=== PATIENT | male | born 1960 | race Caucasian/White ===

== ENCOUNTER 2021-06-12 10:50 | Outpatient (CLI) | payer OTHER, SELFPAY ==
--- NOTE | 2021-06-16 13:44 | WPDHOLTEREM ---
Holter/Event Monitor Holter/Event Monitor Date of procedure: 06/12/21 Holter/Event Procedure: 24 Hr Holter Monitor Indications: Bradycardia Conclusion: 1. 24 hour holter monitor on 06/12/21. 2. Predominant rhythm is sinus rhythm. HR range 50-100 bpm; average HR 66 bpm. 3. There are 41 premature supraventricular complexes and 2 supraventricular couplets. One episode of atrial tachycardia at 122 bpm lasting 4 beats at 05:11. 4. There are 24 premature ventricular complexes. No ventricular tachycardia. 5. No sinoatrial or atrioventricular blocks. No significant pauses greater than 2 seconds. 6. No symptoms available for correlation.
== END 2021-06-12 10:51 | disposition home or self-care (01) ==
PROVIDERS: PCP Family Medicine; Visit Provider Physician Assistant
DX: R00.1 Bradycardia, unspecified (principal)
CPT/HCPCS: 93225; 93226

== ENCOUNTER 2022-05-21 00:23 | Day surgery (SDC) | payer OTHER, SELFPAY ==
[2022-05-05 13:59] VITALS: BMI 25.7
--- NOTE | 2022-05-20 12:55 | WPDANESEPPF ---
Anes - Initial Pre Proc Eval Procedure: Operation Date: 05/21/22 09:00 Proposed Procedures p Screening Colonoscopy - Epi Justice MD Date/Time: 05/20/22 12:55 Surgeon: Epi Justice MD Pre Op Diagnosis: neoplasm screening Patient Data Age: 61 Gender: M Height: 1.88 m Weight: 90.9 kg Allergies Allergy/AdvReac Type Severity Reaction Status Date / Time Iodinated Contrast Media Allergy Unknown Other Verified 05/21/22 08:07 morphine Allergy Unknown Other Verified 05/21/22 08:07 Home Medications Medication Instructions Recorded Confirmed Type ergocalciferol (vitamin D2) 1,250 1,250 mcg PO WEEKLY #14 caps 05/07/21 05/21/22 Rx mcg (50,000 unit) capsule (Vitamin D2) loratadine 10 mg tablet (Claritin) 10 mg PO DAILY PRN Allergy Symptoms 05/07/21 05/21/22 History cholecalciferol (vitamin D3) 50 50 mcg PO DAILY 03/02/22 05/21/22 History mcg (2,000 unit) capsule mecobalamin (vitamin B12) 1,000 1,000 mcg PO DAILY 03/02/22 05/21/22 History mcg chewable tablet nirmatrelvir 300 mg (150 mg See Rx Instructions PO .COMPLEX 03/04/22 05/21/22 Rx x2)-ritonavir 100 mg tablet,dose #30 tabs pack(EUA) (Paxlovid) sildenafil 50 mg tablet (Viagra) 50 mg PO DAILY PRN Sexual Activity 05/05/22 05/21/22 History Patient hx anesthesia problems: none Family hx anesthesia problems: none Results Review: All pre-operative results and documents have been reviewed as part of the pre-operative evaluation. [facility] Surgical History Surgical History Hx of appendectomy Status post labral repair of shoulder Family History Family History Grandparent Family history of glaucoma Cerebrovascular accident Father Family history of lung cancer Social History Social History Smoking status: Never smoker Alcohol intake: current Drinks per week: 7 Alcohol use details: beer and mixed drinks Living arrangements: with family Tianna Scales Final PreProcedure Day of Procedure 05/20/22 12:55 Patient weight: overweight Heart: regular rate and rhythm Lungs: clear to auscultation Airway: Mallampati scale class II Neurological: alert and oriented Last oral intake: >/= 8 hours ASA classification: II Emergent: no Anesthetic plan: proceed Anesthesia type and monitoring: general GIVS and standard monitoring Results Review: All pre-operative results and documents have been reviewed as part of the pre-operative evaluation. Informed Consent: The patient's anesthetic plan and its attendant risks and benefits were discussed with the patient/family/POA. Questions were solicited and answers provided to the satisfaction of the patient/family/POA.
--- NOTE | 2022-05-21 07:27 | PM.HPGS ---
History of Present Illness History of Present Illness Consent: Risks, benefits, and alternatives have been discussed and questions answered. Patient agrees to proceed with procedure. Chief complaint: neoplasm screening Narrative: Geoff Wing is a 61 year old male Referred for colon cancer screening. Review of Systems Review of Systems: All systems reviewed & are unremarkable except as noted in HPI and below PMFSH Surgical History Surgical History Hx of appendectomy Status post labral repair of shoulder Family History Family History Grandparent Family history of glaucoma Cerebrovascular accident Father Family history of lung cancer Social History Social History Smoking status: Never smoker Alcohol intake: current Drinks per week: 7 Alcohol use details: beer and mixed drinks Living arrangements: with family Meds Home Medications and Allergies Home Medications Medication Instructions Recorded Confirmed Type ergocalciferol (vitamin D2) 1,250 1,250 mcg PO WEEKLY #14 caps 05/07/21 05/05/22 Rx mcg (50,000 unit) capsule (Vitamin D2) loratadine 10 mg tablet (Claritin) 10 mg PO DAILY PRN Allergy Symptoms 05/07/21 05/05/22 History cholecalciferol (vitamin D3) 50 50 mcg PO DAILY 03/02/22 05/05/22 History mcg (2,000 unit) capsule mecobalamin (vitamin B12) 1,000 1,000 mcg PO DAILY 03/02/22 05/05/22 History mcg chewable tablet nirmatrelvir 300 mg (150 mg See Rx Instructions PO .COMPLEX 03/04/22 05/05/22 Rx x2)-ritonavir 100 mg tablet,dose #30 tabs pack(EUA) (Paxlovid) sildenafil 50 mg tablet (Viagra) 50 mg PO DAILY PRN Sexual Activity 05/05/22 05/05/22 History Allergies Allergy/AdvReac Type Severity Reaction Status Date / Time Iodinated Contrast Media Allergy Unknown Other Verified 05/21/22 08:07 morphine Allergy Unknown Other Verified 05/21/22 08:07 Exam Resp: Auscultation: clear to auscultation bilaterally Cardio: Rate: regular rate Rhythm: regular rhythm GI: GI Palp: Yes Soft to palpation and No Tenderness to palpation present (GI) Assessment and Plan Assessment and plan (1) Screening for colon cancer: Code(s): Z12.11 - Encounter for screening for malignant neoplasm of colon Status: Acute Assessment and Plan: Colonoscopy with possible biopsy or polypectomy or cautery or injection of substances.
[2022-05-21 08:09] VITALS: BP 139/89; PULSE 63; RESP 18; TEMP 36.9; O2SAT 100; BMI 25.7
[2022-05-21] MEDS: LACTATED RINGERS 1,000 ML 150 ML IV CONT (08:13)
[2022-05-21 09:13] VITALS: BP 118/73; PULSE 64; RESP 20; O2SAT 96
[2022-05-21 09:23] VITALS: BP 120/68; PULSE 64; RESP 22; O2SAT 98
[2022-05-21 09:33] VITALS: BP 140/90; PULSE 62; RESP 22; O2SAT 100
== END 2022-05-21 09:57 | disposition home or self-care (01) ==
PROVIDERS: PCP Physician Assistant; Visit Provider Internal Medicine Gastroenterology
PROC: 0DJD8ZZ Inspection of Lower Intestinal Tract, Via Natural or Artificial Opening Endoscopic (ICD-10-PCS; CPT 45378; principal; 2022-05-21 09:00)
DX: Z12.11 Encounter for screening for malignant neoplasm of colon (principal)
CPT/HCPCS: 45378; J2001; J2704; J7120

== ENCOUNTER 2024-11-20 08:54 | Outpatient (CLI) | payer OTHER, SELFPAY ==
--- NOTE | 2024-11-20 08:58 | ECHO_ITS ---
Patient Info Name: Geoff Wing Age: 64 years : 1960 Gender: Male Ht: 74 in Wt: 205 lbs BSA: 2.21 m2 HR: 79 bpm BP: 126 / 72 mmHg Heart Rhythm: Sinus Rhythm Technical Quality: Excellent Exam Date: 11/20/2024 9:10 AM Exam Location: Echo Lab Patient Status: Outpatient Admit Date: 11/20/2024 Staff Ordering Physician: Shmuel Jamil APRN Bailiff: Jennifer Green RDCS Attending Provider: Shmuel Jamil APRN Referring Physician: Omero MCGUIRE; Exam Type: CA echo doppler color flow Study Info Indications - Palpitations, unspecified atrial fib Complete two-dimensional, color flow and Doppler transthoracic echocardiogram is performed. Summary 1. Complete two-dimensional, color flow and Doppler transthoracic echocardiogram is performed. 2. Left ventricular chamber dimension is normal. 3. Left ventricular systolic function is normal, estimated at 60-65%. 4. The left ventricular diastolic function is normal. 5. E/e' 7 is not elevated. 6. Left atrial chamber dimension is mildly enlarged. 7. There is mild aortic valve sclerosis. 8. There is mild mitral valve regurgitation. 9. There is trace tricuspid valve regurgitation. 10. No pulmonary hypertension, estimated pulmonary arterial systolic pressure is 34 mmHg. Left Ventricle E/e' 7 is not elevated. Left ventricular chamber dimension is normal. Left ventricular systolic function is normal, estimated at 60-65%. The left ventricular diastolic function is normal. Right Ventricle Right ventricular systolic function is normal and with normal TAPSE 2.9 cm. Right ventricular chamber dimension is normal. Left Atria Left atrial chamber dimension is mildly enlarged. Right Atria Right atrial chamber dimension is normal. Aortic Valve The aortic valve is trileaflet. There is mild aortic valve sclerosis. There is no aortic valve stenosis. There is no aortic valve regurgitation. Pulmonic Valve There is no pulmonic regurgitation. Mitral Valve There is no mitral valve stenosis. There is mild mitral valve regurgitation. Tricuspid Valve There is trace tricuspid valve regurgitation. No pulmonary hypertension, estimated pulmonary arterial systolic pressure is 34 mmHg. Pericardium/Pleural There is no pericardial effusion. Inferior Vena Cava Normal inferior vena cava with >50% collapse upon inspiration consistent with normal right atrial pressure, 5 mmHg. Aorta The aortic root size at the sinus of Valsalva is normal. Left Ventricular Outflow Tract Name Value Normal LVOT 2D LVOT Diameter 2.0 cm LVOT Doppler LVOT Peak Gradient 5 mmHg LVOT Mean Gradient 2 mmHg LVOT VTI 24 cm LVOT VTI/AV VTI Ratio 1.0 LVOT Stroke Volume 77 ml LVOT CO 4.8 l/min LVOT CI 2.2 l/min/m2 Pulmonic Valve Name Value Normal PV Doppler PV Peak Gradient 2 mmHg Mitral Valve Name Value Normal MV Doppler MV Peak Gradient 2 mmHg MV Mean Gradient 1 mmHg MV Decel Rock 272 cm/s2 MV PHT 69 ms MV Area (PHT) 3.2 cm2 4.0-5.0 MV Area (Cont Eq VTI) 3.5 cm2 MV Regurgitation Doppler MR Peak Gradient 120 mmHg MV Diastolic Function MV E Peak Velocity 65 cm/s MV A Peak Velocity 63 cm/s MV E/A 1.0 MV Decel Time 238 ms MV Annular TDI MV E/e' (Septal) 9.8 <=8.0 MV E/e' (Lateral) 6.6 <=8.0 MV E/e' (Average) 8.2 Tricuspid Valve Name Value Normal TV Regurgitation Doppler TR Peak Velocity 269 cm/s TR Peak Gradient 29 mmHg Estimated PAP/RSVP RA Pressure 5 mmHg <=5 PA Systolic Pressure 34 mmHg <36 RV Systolic Pressure 34 mmHg <36 Aortic Valve Name Value Normal AV Doppler AV Peak Velocity 120 cm/s AV Peak Gradient 6 mmHg AV Mean Gradient 3 mmHg AV VTI 25 cm AV Area (Cont Eq VTI) 3.1 cm2 >=3.0 AV Area (Cont Eq Tenzin) 2.9 cm2 AV Regurgitation 2D LVOT Area 3.2 cm2 Ventricles Name Value Normal LV Dimensions 2D/MM IVS Diastolic Thickness (2D) 0.7 cm 0.6-1.0 LVID Diastole (2D) 5.3 cm 4.2-5.8 LVIW Diastolic Thickness (2D) 0.8 cm 0.6-1.0 LVID Systole (2D) 3.8 cm 2.5-4.0 LVOT Diameter 2.0 cm LV Mass (2D Cubed) 148.75 g 88.00-224.00 LV Mass Index (2D Cubed) 67 g/m2 49-115 Relative Wall Thickness (2D) 0.32 LV Fractional Shortening/Ejection Fraction 2D/MM LV Fractional Shortening (2D) 29 % 25-43 LV EF (2D Teicholz) 55 % 52-72 LV Diastolic Volume (4C MOD) 144 ml LV EF (4C MOD) 70 % LV Diastolic Volume (2C MOD) 160 ml LV EF (2C MOD) 65 % LV Diastolic Volume (BP MOD) 155 ml 62-150 LV Diastolic Volume Index (BP MOD) 70 ml/m2 34-74 LV Systolic Volume (BP MOD) 50 ml 21-61 LV Systolic Volume Index (BP MOD) 23 ml/m2 11-31 LV EF (BP MOD) 68 % 52-72 LV Diastolic Length (4C) 8.3 cm LV Systolic Length (4C) 6.8 cm LV Stroke Volume (4C MOD) 100 ml LV CO (BP MOD) 6.8 l/min LV CI (BP MOD) 3.1 l/min/m2 Atria Name Value Normal LA Dimensions LA Volume (4C A-L) 56 ml LA Volume (BP A-L) 57 ml RA Dimensions RA Area (4C) 18.4 cm2 <=18.0 Report Signatures
--- OUTSIDE RECORDS SUMMARY | 2024-11-20 09:34 | XMS_ITS | Referral Summary ---
Author Organization [facility] [employer] Address [address] [address] Care Team Providers Care Structural Steel Ironworker Name Role Phone Jeffery Chacon MD Primary Care Provider [phone] Source Comments [facility],non-owned Affiliates and Associated Physician Practices is amultiple site organization consisting of ambulatory clinics and hospital sitesin [place], [place], [place] and [place]. This disclosure is being madepursuant to the Care Everywhere program and may not contain all information available regarding this patient. Last updated 18.[facility] Allergies Active Allergy Reactions Criticality Noted Date Comments Morphine 01/08/2014 Medications * Be aware that medications may not be up to date on this document. Alwaysverify current medications with the patient. Medication Sig Dispensed Refills Start Date End Date Status IBUPROFEN PO Active loratadine (Claritin) 10 MG tablet Take 1 (one) tablet by mouth as needed for Runny Nose or Allergies Active cyanocobalamin (Vitamin B-12) 1000 MCG tablet Take 1 (one) tablet by mouth once daily 03/22/2023 Active clindamycin (Cleocin) 1 % lotionIndications:Andrzej thrasma Apply to affected area on groin twice daily as needed. 30 day supply. 60 mL 2 01/31/2024 Active fluocinonide (Lidex) 0.05 % creamIndications:Grov er's disease Apply to affected areas on trunk twice daily. 30 days supply. 90 g 5 01/31/2024 Active triamcinolone acetonide (Kenalog) 0.1 % creamIndications:Grov er's disease Apply thin layer to rashes on body up to twice daily as needed. 30 day supply. 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 Inflamed seborrheic keratosis 06/01/2022 Actinic skin damage 06/01/2022 Multiple benign melanocytic nevi of upper and lower extremities and trunk 06/01/2022 Neoplasm of uncertain behavior of skin Body mass index (bmi) 26.0-26.9, adult 9 Elevated liver enzymes 05/19/2018 Prediabetes 05/19/2018 Immunizations Name Administration Dates Next Due INFLUENZA VACCINE 07/20/2022,07/14/2019 Social History Tobacco Use Types Packs/Day Years Used Date Smoking Tobacco: Never Smokeless Tobacco: Never Tobacco Cessation:Counseling Given: Not Answered Alcohol Use Standard Drinks/Week Comments Yes 0 (1 standard drink = 0.6 oz pur e alcohol) socially PHQ-2 Answer Date Recorded Patient Health Questionnaire-2 Score 1 04/02/2024 Sex and Gender Information Value Date Recorded Sex Assigned at Not on file Gender Identity Not on file Sexual Orientation Not on file Plan of Treatment Not on file Care Teams Structural Steel Ironworker Relationship Specialty Start Date End Date Jeffery Chacon MD [address] [place], [place] [id number] PCP - General 06/01/22
--- OUTSIDE RECORDS SUMMARY | 2024-11-20 09:34 | XMS_ITS | Clinical Summary ---
Author Organization [facility] [employer] Address [address] [place] [address] Care Team Providers Care Medical File Clerk Name Role Phone Jeffery Chacon MD Primary Care Provider [phone] Source Comments [facility],non-owned Affiliates and Associated Physician Practices is amultiple site organization consisting of ambulatory clinics and hospital sitesin [place], [place], [place] and [place]. This disclosure is being madepursuant to the Care Everywhere program and may not contain all information available regarding this patient. 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 Inflamed seborrheic keratosis 06/01/2022 Actinic skin damage 06/01/2022 Multiple benign melanocytic nevi of upper and lower extremities and trunk 06/01/2022 Neoplasm of uncertain behavior of skin Body mass index (bmi) 26.0-26.9, adult 9 Elevated liver enzymes 05/19/2018 Prediabetes 05/19/2018 Immunizations Name Administration Dates Next Due INFLUENZA VACCINE 07/20/2022,07/14/2019 Family History Medical History Relation Name Comments Cancer - Skin, Melanoma Neg Hx Cancer - Skin, Non Melanoma Neg Hx Social History Tobacco Use Types Packs/Day Years [...] Orientation Not on file Plan of Treatment Health Maintenance Due Date Last Done Comments COLOGUARD (AGES 45-75) - COLON CA SCREENING 1960 COLON MONITORING 1960 COLONOSCOPY - COLON CA SCREENING 1962 CT COLONOGRAPHY - COLON CA SCREENING 1960 Colorectal Cancer Screening 1960 FIT - COLON CA SCREENING 1960 FLEX SIG - COLON CA SCREENING 1960 LIPID TESTING 1960 HIV SCREENING 1977 HEPATITIS C SCREENING 09/14/1980 DTAP/TDAP/TD VACCINES (1 - Tdap) 1981 PNEUMOCOCCAL VACCINE 50+ (1 of 1 - PCV) 2012 ZOSTER VACCINE (1 of 2) 2012 COVID-19 VACCINE (1 - 2023- season) 2024 INFLUENZA VACCINE (#1) 2024 3, 10/28/2022, 07/20/2022, Additional history exists DEPRESSION SCREENING 10/10/2024 04/02/2024 Respiratory Syncytial Virus (RSV) Vaccine Pt: or over 60 yrs (1 - 1-dose 75+ series) 2037 HEPATITIS B VACCINE Aged Out No longe r eligible based on patient's age to complete this topic HIB VACCINE Aged Out No longer eligi ble based on patient's age to complete this topic HPV VACCINE Aged Out No longer eligi ble based on patient's age to complete this topic MENINGOCOCCAL (Group B) VACCINE Aged Out No longer eligible based on patient's age to complete this topic MENINGOCOCCAL VACCINE Aged Out No javier meredith eligible based on patient's age to complete this topic PNEUMOCOCCAL VACCINE Aged Out No long er eligible based on patient's age to complete this topic Care Teams Medical File Clerk Relationship Specialty Start Date End Date Jeffery Chacon MD [address] [place] [phone] [facility] - General 06/01/22
--- OUTSIDE RECORDS SUMMARY | 2024-11-20 09:34 | XMS_ITS | CONTINUITY OF CARE DOCUMENT ---
Author Name ethan long Address Unknown Organization [facility] Address [address] [place] [address] Phone [phone] Care Team Providers Care Grease Rack Worker Name Role Phone ethan long Unavailable Unavailable
--- OUTSIDE RECORDS SUMMARY | 2024-11-20 09:34 | XMS_ITS | Clinical Summary ---
Author Organization [facility] Address [address] [place] [id number] Care Team Providers Care Natural Resources Professor Name Role Phone Unavailable Primary Care Provider Unavailabl e Medications nirmatrelvir-ri tonavir (Paxlovid, EUA,) 300(150mg x 2)-100 mg oral pack Take two 150 mg tablets of nirmatrelvir with one 100 mg tablet of ritonavir twice daily for 5 days 30 Each 2 Active triamcinolone acetonide (KENALOG) 0.1 % Cream Apply a thin layer to rashes on body twice daily as needed 80 Gram 2 06/04/2022 2:00 PM CDT 2 Active cholecalciferol 1,250 mcg (50,000 unit) Capsule Take one capsule (1250 mcg) by mouth once weekly 8 Capsule 09/09/2022 5:14 PM OTR VAN CDL TRUCK DRIVER 2 Active nirmatrelvir-ri tonavir (Paxlovid, EUA,) 300(150mg x 2)-100 mg oral pack take TWO 150 mg tablets of nirmatrelvir with ONE 100 mg tablet of ritonavir twice daily for 5 days PO 30 Each 3 Active fluocinonide (LIDEX) 0.05 % Cream Apply to affected areas on trunk twice daily. 90 Gram 5 01/19/2023 4:15 PM CDT 3 Active triamcinolone acetonide (KENALOG) 0.1 % Cream Apply thin layer to rashes on body up to twice daily as needed. 80 Gram 2 01/19/2023 4:15 PM CDT 3 Active cyanocobalamin 1,000 mcg Tablet Take 1 Tablet (1,000 mcg) by mouth daily. 90 Tablet 3 02/16/2024 6:03 PM CDT 3 Active HYDROcodone-clarita taminophen (NORCO) 5-325 mg tablet TAKE 1-2 TABLETS BY MOUTH EVERY 6 HOURS NEEDED FOR PAIN. 15 Tablet 05/11/2023 4:28 PM CDT 3 Active fluocinolone acetonide oiL (DERMOTIC) 0.01 % Drops Administer 1-2 drops in ear canal as needed. 20 mL 2 08/06/2023 9:38 AM CDT 3 Active triamcinolone acetonide (KENALOG) 0.1 % Cream Apply a thin layer to rashes on body up to twice daily as needed. 80 Gram 2 08/06/2023 9:38 AM CDT 3 Active cholecalciferol 1,250 mcg (50,000 unit) Capsule Take one capsule (1250 mcg) orally weekly 8 Capsule 09/17/2023 9:54 AM OTR VAN CDL TRUCK DRIVER 3 Active clindamycin phosphate (CLEOCIN) 1 % Lotion Apply to affected area on groin twice daily as needed. 60 mL 2 02/07/2024 1:10 PM CDT 4 Active fluocinolone acetonide oiL (DERMOTIC) 0.01 % Drops Use 1-2 drops in ear canal as needed. 20 mL 2 4 Active fluocinonide (LIDEX) 0.05 % Cream Apply to affected areas on trunk twice daily. 90 Gram 5 4 Active triamcinolone acetonide (KENALOG) 0.1 % Cream Apply thin layer to rashes on body up to twice daily as needed. 80 Gram 2 02/07/2024 1:10 PM CDT 4 Active lisinopriL (PRINIVIL) 10 mg tablet Take one tablet (10mg) orally daily 90 Tablet 03/27/2024 3:23 PM CDT 4 Active Immunizations Immunization Administration Dates Next Due (SHINGRIX)(50 YRS UP) ZOSTER VACCINE RECOMBINANT, 0.5 ML, IM 03/27/2022 INFLUENZA VACCINE QUADRIVALENT 6 MOS UP PF IM Social History Tobacco Use Types Packs/Day Years Used Date Smoking Tobacco: Never Assessed Sex and Gender Information Value Date Recorded Sex Assigned at Not on file Legal Sex Male 3:27 PM CDT Gender Identity Not on file Sexual Orientation Not on file Plan of Treatment Health Maintenance Due Date Last Done Comments DTAP/TDAP/TD VACCINES (1 - Tdap) 1981 COLORECTAL SCREENING 2007 Colorectal Cancer Screening 2007 FIT-DNA Q 3 years 2007 FIT/FOBT Q 1 year 2007 Flex Sig/CT Colonography Q 5 years 2007 ZOSTER VACCINE (2 of 2) 05/22/2022 03/27/2022 INFLUENZA VACCINE (#1) 2024 06/30/2023 RSV VACCINE (60+ or ) (1 - 1-dose 75+ series) 2037 PNEUMOCOCCAL VACCINE 0-64 YEARS Aged Out No longer eligible based on patient's age to complete this topic Insurance RX [facility] [employer] (INTERNAL) [facility] [employer] Transaction [employer] O OPEN ACCESS
--- OUTSIDE RECORDS SUMMARY | 2024-11-20 09:34 | XMS_ITS | Patient Health Summary ---
Author Organization [facility] Address [address] [place] [address] Care Team Providers Care Geophysical Laboratory Chief Name Role Phone Jeffery Chacon MD Primary Care Provider [phone] Note from [facility],non-owned Affiliates and Associated Physician Practices is amultiple site organization consisting of ambulatory clinics and hospital sitesin [place], [place] and [place]. This disclosure is being madepursuant to the Care Everywhere program and may not contain all information available regarding this patient. Last updated 18.[facility] Allergies * Morphine Medications * Be aware that medications may not be up to date on this document. Alwaysverify current medications with the patient. * IBUPROFEN PO * loratadine (Claritin) 10 MG tablet Take 1 (one) tablet by mouth as needed for Runny Nose or Allergies * cyanocobalamin (Vitamin B-12) 1000 MCG tablet(Started 03/22/2023) Take 1 (one) tablet by mouth once daily * clindamycin (Cleocin) 1 % lotion(Started 01/31/2024) Apply to affected area on groin twice daily as needed. 30 day supply. 2 refills by 01/30/2025 * fluocinonide (Lidex) 0.05 % cream(Started 01/31/2024) Apply to affected areas on trunk twice daily. 30 days supply. 5 refills by 01/30/2025 * triamcinolone acetonide (Kenalog) 0.1 % cream(Started 01/31/2024) Apply thin layer to rashes on body up to twice daily as needed. 30 day supply. 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 06/01/2022 Inflamed seborrheic keratosis 06/01/2022 Actinic skin damage 06/01/2022 Multiple benign melanocytic nevi of upper and lower extremities and trunk 06/01/2022 Neoplasm of uncertain behavior of skin Body mass index (bmi) 26.0-26.9, adult 9 Elevated liver enzymes 05/19/2018 Prediabetes 05/19/2018 Immunizations * INFLUENZA VACCINE(Given 07/20/2022, 07/14/2019) Social History Tobacco Use Types Packs/Day Years [...] on file Sexual Orientation Not on file Procedures * MN DESTRUCT BENIGN LESION, 1-14(Performed 08/01/2024) Performed for Inflamed seborrheic keratosis * MN TANGNTL BX SKIN SINGLE LES(Performed 08/01/2024) Performed for Neoplasm of uncertain behavior of skin * DERMATOPATHOLOGY(Performed 08/01/2024) Performed for Neoplasm of uncertain behavior of skin * XR HIP RIGHT 2VW OR MORE(Performed 04/02/2024) Performed for Pain of right hip * MN DESTRUCT BENIGN LESION, 1-14(Performed 01/31/2024) Performed for Keratosis, inflamed seborrheic * MN DESTRUCT BENIGN LESION, 1-14(Performed 08/03/2023) Performed for Viral warts, unspecified type * MN DESTROY PREMALIG LESION, 1ST LESION(Performed 01/18/2023) Performed for Actinic keratosis * MN DESTRUCT BENIGN LESION, 1-14(Performed 01/18/2023) Performed for Inflamed seborrheic keratosis * MN EXC SKIN BENIG 1.1-2CM TRUNK,ARM,LEG(Performed 08/05/2022) Performed for Neoplasm of uncertain behavior of skin * MN INTMD WND REPAIR TRUNK,ARM,LEG 2.6-7.5(Performed 08/05/2022) Performed for Neoplasm of uncertain behavior of skin * DERMATOPATHOLOGY(Performed 08/05/2022) Performed for Neoplasm of uncertain behavior of skin * MN DESTRUCT BENIGN LESION, 1-14(Performed 06/01/2022) Performed for Inflamed seborrheic keratosis * MN TANGNTL BX SKIN SINGLE LES(Performed 06/01/2022) Performed for Neoplasm of uncertain behavior of skin * MN TANGNTL BX SKIN EA SEP ADDL(Performed 06/01/2022) Performed for Neoplasm of uncertain behavior of skin * DERMATOPATHOLOGY(Performed 06/01/2022) Performed for Neoplasm of uncertain behavior of skin * MN DESTROY PREMALIG LESION, 1ST LESION(Performed 11/07/2019) Performed for Actinic keratoses * MN DESTROY PREMALIG LESION, 2-14(Performed 11/07/2019) Performed for Actinic keratoses * DERMATOPATHOLOGY(Performed 03/01/2012) Results * MN DESTRUCT BENIGN LESION, 1-14 (08/01/2024 9:49 AM CDT) Narrative Victoria Mcneal MD - 08/01/2024 9:49 AM CDT Farooq Humphries MD 08/01/2024 9:49 AM Diagnosis and treatment options discussed. Cryotherapy (Liquid Nitrogen) to 4 ISK(s) (location: chest 4x ) x 8-10 seconds each. Number of cycles: 1. Wound care reviewed. Victoria Mcneal MD PROCEDURE/RAY Jackson SURGICAL ORDERABLES * MN TANGNTL BX SKIN SINGLE LES (08/01/2024 9:48 AM CDT) Narrative Victoria Mcneal MD - 08/01/2024 9:48 AM CDT Farooq Humphries MD 08/01/2024 9:49 AM Risks, benefits and alternatives to shave biopsy were discussed with the patient, including risks of infection, scar (100% chance), the possibility of non-diagnostic reading, and the potential need for further testing or treatment, including surgical. Patient expressed understanding and verbal consent was obtained. Location: right back Skin prep: Alcohol Anesthesia: 1% lidocaine with epinephrine Hemostasis: Aluminum Chloride Dressing and wound care discussed. Patient agrees to phone call for results and message if not available. Farooq Humphires MD [facility] Dermatology Resident Victoria Mcneal MD PROCEDURE/RAY R SURGICAL ORDERABLES * DERMATOPATHOLOGY (08/01/2024 3:33 AM CDT) Only the most recent of4 resultswithin the time period is included. Case Report Dermatopathology Report Case: [id number] Authorizing Provider: Victoria Mcneal, Collected: 08/01/2024 03:33 AM Ordering Location: [facility] - Received: 08/02/2024 10:39 AM Cosmetic Dermatology Pathologist: Maria R Harrington MD Specimen: Skin, right back 12:16 PM CDT DERMATOPATHOLOGY LABORATORY Final Diagnosis Specimen A. SKIN, right back: EPIDERMOID CYST WITH EVIDENCE OF RUPTURE (L72.0) 12:16 PM T DERMATOPATHOLOGY LABORATORY Clinical History BCC vs Folliculitis vs Other 12:16 PM CDT DERMATOPATHOLOGY LABORATORY Gross Description Specimen A: Received is one formalin filled container labeled with the patient's name and designated right back. The specimen consists of a shave biopsy measuring 6x6x1 mm. Jar 0. 12:16 PM CDT DERMATOPATHOLOGY LABORATORY Microscopic Description Specimen A. SKIN, right back: Within the dermis, there is a space lined by epithelium that resembles normal epidermis and the infundibular portion of the hair follicle. Surrounding this is an infiltrate with neutrophils, histiocytes, and multinucleated giant cells. 12:16 PM CDT DERMATOPATHOLOGY LABORATORY Disclaimer An external and internal positive and negative controls are appropriate for the histochemical, immunohistochemical and immunofluorescence stain(s) in this case (if any), except where stated explicitly. The performance characteristics of the stain(s) cited in this report were developed and its performance characteristic determined by the Dermatopathology Laboratory at [facility], directed by Dr. Russell Galindo. These tests need not be, and therefore are not, approved by the [place] Food and Drug Administration. The tests are used for clinical purposes. Billing Codes Specimen Charges Stain Charges 55150 1 12:16 PM CDT DERMATOPATHOLOGY LABORATORY Embedded Images 12:16 PM CDT DERMATOPATHOLOGY LABORATORY Pathology/Cytolo gy TISSUE SPECIMEN FROM SKIN / Unknown 08/01/2024 3:33 AM CDT 08/02/2024 10:39 AM CDT Victoria Mcneal MD LAB - PATHOLOG Y/CYTOLOGY ORDERABLES Performing Organization Address City/[facility]/ZIP Co de Phone Number DERMATOPATHOLOGY LABORATORY [facility] - Department of Dermatology [address], [address] [phone] * XR HIP RIGHT 2VW OR MORE (04/02/2024 3:16 PM CDT) Narrative [facility] [place] [address] - 04/02/2024 3:16 PM CDT Please see progress note in Epic for results. Jef Gomez IV, MD DIAGNOSTIC IMAGING O RDERABLES Performing Organization Address City/[facility]/ZIP Co de Phone Number [facility] [address] * MN DESTRUCT BENIGN LESION, 1-14 (01/31/2024 12:09 PM CDT) Narrative Victoria Mcneal MD - 01/31/2024 12:09 PM CDT Camila Batista MD 01/31/2024 12:09 PM Diagnosis and treatment options discussed. Cryotherapy (Liquid Nitrogen) to 4 lesion(s) for 10 seconds. Number of cycles: 1-2. Wound care reviewed. Locations: chest x3, forehead x1 Camila Batista MD [facility] Dermatology Resident Victoria Mcneal MD PROCEDURE/RAY R SURGICAL ORDERABLES * MN DESTRUCT BENIGN LESION, 1-14 (08/03/2023 2:13 PM CDT) Narrative Victoria Mcneal MD - 08/03/2023 2:13 PM CDT David Nayak MD 08/03/2023 2:13 PM Diagnosis and treatment options discussed. Cryotherapy (Liquid Nitrogen) to 1 lesion(s) for 15 seconds each. Number of cycles: 2. Wound care reviewed. Location: chest David Nayak MD Dermatology PGY-4 Victoria Mcneal MD PROCEDURE/RAY R SURGICAL ORDERABLES * MN DESTROY PREMALIG LESION, 1ST LESION (01/18/2023 4:18 PM CDT) Narrative Victoria Mcneal MD - 01/18/2023 4:18 PM CDT Min Carlson MD 01/18/2023 4:19 PM Diagnosis and treatment options discussed. Liquid nitrogen was applied to 1 lesion (R brow) for 5-7 seconds for 1 cycle. Wound care reviewed. Min Carlson MD [facility] Dermatology Resident, PGY-3 Victoria Mcneal MD PROCEDURE/RAY R SURGICAL ORDERABLES * MN DESTRUCT BENIGN LESION, 1-14 (01/18/2023 4:18 PM CDT) Victoria Garcia MD - 01/18/2023 4:18 PM CDT Min Carlson MD 01/18/2023 4:18 PM Diagnosis and treatment options discussed. Liquid nitrogen was applied to 1 lesions (L pentecostal) for 5-7 seconds for 1 cycle. Wound care reviewed. Min Carlson MD [facility] Dermatology Resident, PGY-3 Victoria Mcneal MD PROCEDURE/RAY R SURGICAL ORDERABLES * MN INTMD WND REPAIR TRUNK,ARM,LEG 2.6-7.5, MN EXC SKIN BENIG 1.1-2CM TRUNK,ARM,LEG (08/05/2022 12:14 PM CDT) Victoria Garcia MD - 08/05/2022 12:14 PM CDT Victoria Mcneal MD 08/05/2022 12:17 PM Elliptical Excision with Intermediate Closure Date of Service: 08/05/2022 Repair Size: 4.9cm Suture Material: 3-0 monocryl, 4-0 prolene Tumor Type: CMP Location: left upper back Derm-Path Lesion Size: 0.8x0.9cm Level of Defect: subcutaneous fat Surgeon: Dr. Victoria Mcneal MD Water Treatment Technician: Michelle Trevizo MA INDICATIONS: The patient was scheduled for excision of a CMP of the left upper back. The risks of bleeding, infection, discomfort, incomplete removal, recurrence, and scar formation were explained to the patient. All questions were answered. After informed consent, confirmation of site and identity, and appropriate instructions, the patient underwent the procedure as follows: PROCEDURE: With the patient in an upright position, the lesion was outlined with 0.3 cm margins. The lesion and the necessary margin 1.4x1.5cm. An ellipse was designed around the lesion to conform to relaxed skin tension lines in an effort to minimize scarring and deformity. The patient was then placed in a right lateral decubitus position. The lesion and surrounding skin were prepped with Hibiclens, draped, and anesthetized with 8.5cc of Lidocaine 1% with epinephrine 1:100,000 buffered with sodium bicarbonate 8.4% in a 1:10 ratio . Using a #15 blade the skin was excised along premarked lines. The resulting defect extended through deep subcutaneous tissue. Wound margins were undermined to limit functional deformity/impairment of adjacent structures. Bleeding vessels were controlled with monopolar electrodessication. The dermis and subcutaneous tissue were closed with buried 3-0 monocryl vertical mattress sutures. Epidermal approximation was meticulously refined with horizontal mattress and simple running 4-0 prolene sutures, resulting in a linear closure with little to no wound tension. Blood loss was estimated to be less than 5cc. The area was coated with petrolatum and covered with a non-adherent dressing followed by gauze and tape. Postoperative instructions were reviewed per protocol, verbally and provided in writing. The patient left the operating suite in stable condition, alert and fully oriented. Victoria Mcneal MD 12:17 PM, 08/05/2022 Victoria Mcneal MD PROCEDURE/RAY R SURGICAL ORDERABLES * MN DESTRUCT BENIGN LESION, 1-14 (06/01/2022 3:19 PM CDT) Narrative Victoria Mcneal MD - 06/01/2022 3:19 PM CDT Nuno Song DO 06/01/2022 3:20 PM Diagnosis and treatment options discussed. Cryotherapy (Liquid Nitrogen) to 3 ISKs (forehead, R neck x 2) for 4-6 seconds each. Number of cycles: 1. Wound care reviewed. Nuno Song DO [facility] Dermatology Resident PGY-3 Victoria Mcneal MD PROCEDURE/RAY R SURGICAL ORDERABLES * MN TANGNTL BX SKIN EA SEP ADDL, MN TANGNTL BX SKIN SINGLE LES (06/01/2022 3:19 PM CDT) Narrative Victoria Mcneal MD - 06/01/2022 3:19 PM CDT Nuno Song DO 06/01/2022 3:19 PM Risks, benefits and alternatives to shave biopsy were discussed with the patient. Verbal consent was obtained. Encounter Diagnoses Name Primary? 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 Specimen(s) placed in a patient labeled container and sent to [facility] Dermatopathology. Patient agrees to phone call for results and message if not available. Nuno Song DO [facility] Dermatology Resident PGY-3 Victoria Mcneal MD PROCEDURE/RAY R SURGICAL ORDERABLES * MN DESTROY PREMALIG LESION, 2-14, MN DESTROY PREMALIG LESION, 1ST LESION (11/07/2019 2:38 PM PERISHABLE FRUIT INSPECTOR) Narrative Pallavi Biggs MD - 11/07/2019 2:38 PM PERISHABLE FRUIT INSPECTOR Maryam Jones DO 11/07/2019 2:38 PM Diagnosis and treatment options discussed. Cryotherapy (Liquid Nitrogen) to 2 actinic keratoses (face) for 3-5 seconds each. Number of cycles: 1. Wound care reviewed. Pallavi Biggs MD PROCEDURE/MINOR ERIC RGICAL ORDERABLES Care Teams Geophysical Laboratory Chief Relationship Specialty Start Date End Date Jeffery Chacon MD [address] [place], [place] [id number] PCP - General 06/01/22
--- OUTSIDE RECORDS SUMMARY | 2024-11-20 09:34 | XMS_ITS | Patient Health Record ---
Author Organization Verified [facility] Address [address] [place] [address] Care Team Providers Care Director Of Religious Life Name Role Phone Rodolfo Trinidad Jr, MD Primary Care Provider [phone] Rodolfo Trinidad Jr Unavailable Unavai lable ALLERGIES No Known Allergies REASON FOR REFERRAL No Information IMMUNIZATIONS Vaccine Route Administration Date Status Comme nts Influenza Unknown 10/28/2022 Administered pneumoccocal Unknown 10/28/2022 Refused SOCIAL HISTORY Tobacco Use: Social History Observation Description Date Details (start date - stop date) Never Smoker NA - NA Sex Assigned At : Social History Observation Description Sex Assigned At Unknown Tobacco Use: Question Answer Notes Patient is a: nonsmoker Alcohol screening: Question Answer Notes Did you have a drink contain ing alcohol in the past year? Yes How often did you have a dri nk containing alcohol in the past year? Monthly or less (1 point) How many drinks did you have on a typical day when you were drinking in the past year? 1 or 2 (0 points) How often did you have six o r more drinks on one occasion in the past year? Never (0 points) Points 1 Interpretation Negative PROBLEMS Problem Type ICD Code Onset Dates Problem Status W/U Status Risk SNOMED Code Notes Problem Pain in right hip (M25.551) 3 Active confirmed [id number] Problem Right hip impingement syndrome (M25.851) 3 Active confirmed [id number] Problem Essential (primary) hypertension (I10) Active confirmed [id number] PLAN OF TREATMENT No Information Insurance Providers Payer Name Payer Address Payer Phone Subscriber Number Group Number Insured Name Patient Relationship to Insured Coverage Start Date Coverage End Date [facility] [address] [place] [phone] [id number] Geoff Wing Self - patient is the insured MEDICAL (GENERAL) HISTORY Surgical History Surgery Date(Month/Year) labral tear appendectomy
== END 2024-11-20 08:55 | disposition home or self-care (01) ==
LOC: ANHCARD 08:55
PROVIDERS: PCP Family Medicine; Visit Provider Student in an Organized Health Care Education/Training Program
DX: I48.91 Unspecified atrial fibrillation (principal); I35.8 Other nonrheumatic aortic valve disorders; I34.0 Nonrheumatic mitral (valve) insufficiency
CPT/HCPCS: 93242; 93306